=== PATIENT | female | born 2000 | race Two or more races ===

== ENCOUNTER 2018-03-25 05:52 | Emergency (ER) | payer OTHER ==
[~2018-03-25] VITALS: Ht 154.9 cm; Wt 55.3 kg
== END 2018-03-25 10:57 | disposition home or self-care (01) ==
LOC: ER 05:52
DX: N28.89 Other specified disorders of kidney and ureter (principal); N20.9 Urinary calculus, unspecified

== ENCOUNTER 2018-03-26 13:14 | Emergency (ER) | payer OTHER ==
[~2018-03-26] VITALS: Ht 154.9 cm; Wt 54.4 kg
== END 2018-03-26 19:38 | disposition home or self-care (01) ==
LOC: ER 13:14
DX: O23.31 Infections of other parts of urinary tract in pregnancy, first trimester (principal); N23 Unspecified renal colic; Z34.01 Encounter for supervision of normal first pregnancy, first trimester

== ENCOUNTER 2018-10-11 05:00 | Inpatient (IN) | payer OTHER ==
[~2018-10-11] VITALS: Ht 154.9 cm; Wt 61.2 kg
== END 2018-10-13 11:36 | disposition home or self-care (01) | DRG 807 ==
LOC: LDR 05:00 → OB/GYN 05:00 → LDR 05:44 → OB/GYN 22:33
PROVIDERS: ADMIT Obstetrics & Gynecology
PROC: 10E0XZZ Delivery of Products of Conception, External Approach (ICD-10-PCS; principal; 2018-10-11)
PROC: 0HQ9XZZ Repair Perineum Skin, External Approach (ICD-10-PCS; 2018-10-11)
PROC: 3E033VJ Introduction of Other Hormone into Peripheral Vein, Percutaneous Approach (ICD-10-PCS; 2018-10-11)
PROC: 10907ZC Drainage of Amniotic Fluid, Therapeutic from Products of Conception, Via Natural or Artificial Opening (ICD-10-PCS; 2018-10-11)
PROC: 4A1HXCZ Monitoring of Products of Conception, Cardiac Rate, External Approach (ICD-10-PCS; 2018-10-11)
DX: O70.0 First degree perineal laceration during delivery (principal); Z37.0 Single live birth; Z3A.38 38 weeks gestation of pregnancy